=== PATIENT | female | born 1955 | race Asian ===

== ENCOUNTER 2020-07-12 15:58 | Emergency (ER) | payer OTHER ==
[~2020-07-12] VITALS: Ht 162.6 cm; Wt 65.8 kg
[2020-07-12 16:01] VITALS: Ht 162.6 cm; Wt 65.8 kg
[2020-07-12 18:01] VITALS: BP 116/75
== END 2020-07-12 18:01 | disposition home or self-care (01) ==
LOC: ED 15:58
DX: U07.1 COVID-19 (principal); J12.89 Other viral pneumonia; I10 Essential (primary) hypertension